=== PATIENT | male | born 1965 | race Caucasian/White ===

== ENCOUNTER 2023-10-12 21:12 | Inpatient (IN) | payer MEDICAID, OTHER ==
[~2023-10-12] VITALS: Ht 167.6 cm; Wt 71.8 kg
[2023-10-12 22:27] LABS: BASOPHILS % 0.5 % (0.0-2.0); EOSINOPHILS % 2.1 % (0.0-5.0); HEMATOCRIT. 34.1 % (42.0-52.0); LYMPHOCYTES % 19.2 % (20.0-50.0); MEAN CORPUSCULAR HEMOGLOBIN 29.2 pg (28.0-32.0); MEAN CORPUSCULAR HGB CONC 32.1 g/dL (31.0-37.0); MEAN CORPUSCULAR VOLUME 90.9 fL (80.0-94.0); MONOCYTES % 8.8 % (2.0-8.0); NEUTROPHILS % 69.4 % (40.0-76.0); PLATELET 145 x1000/uL (130-400); RED BLOOD CELL COUNT 3.76 mill/uL (4.7-6.1); RED CELL DISTRIBUTION WIDTH 15.9 % (11.6-14.6); WHITE BLOOD COUNT 6.8 x1000/uL (4.5-11.0)
[2023-10-12 22:36] LABS: CHLORIDE 111 mEq/L (98-107); POTASSIUM 4.7 mEq/L (3.5-5.1); SODIUM 139 mEq/L (136-145)
[2023-10-12 22:37] LABS: CALCIUM 8.4 mg/dL (8.7-10.4); CARBON DIOXIDE 21 mEq/L (21-32)
[2023-10-12 22:41] LABS: CREATININE 2.6 mg/dL (0.6-1.3)
[2023-10-12 22:42] LABS: GLUCOSE 56 mg/dL (70-105); UREA NITROGEN BLOOD 33 mg/dL (9-23)
[2023-10-12 22:44] LABS: ALANINE AMINOTRANSFERASE 15 IU/L (10-49); ALBUMIN 3.2 g/dL (3.2-4.8); ASPARTATE AMINOTRANSFERASE 27 IU/L (<34); BILIRUBIN TOTAL 0.2 mg/dL (0.1-1.0); PROTEIN TOTAL 6.4 g/dL (6.0-8.3)
[2023-10-12 22:58] LABS: TROPONIN I HIGH SENSITIVITY 446 ng/L (3.0-53)
[2023-10-12 22:59] LABS: TROPONIN I HIGH SENSITIVITY 437 ng/L (3.0-53)
[2023-10-13] MEDS: FUROSEMIDE 40MG/4ML VIAL IVP ONE (00:55)
[2023-10-13 03:18] LABS: CLARITY URINE CLEAR (CLEAR); COLOR URINE YELLOW (YELLOW); GLUCOSE URINE NEGATIVE (NEGATIVE); KETONES URINE NEGATIVE (NEGATIVE); LEUKOCYTE ESTERASE URINE NEGATIVE (NEGATIVE); NITRITE URINE NEGATIVE (NEGATIVE); OCCULT BLOOD URINE NEGATIVE (NEGATIVE); PH URINE 5.5 (4.5-8.0); PROTEIN URINE 2+ (NEGATIVE); UROBILINOGEN URINE 0.2 E.U./dL (0.2-1.0)
[2023-10-13 04:01] LABS: BACTERIA URINE TRACE; RBC URINE 0-2 /hpf (0-2); SQUAMOUS EPITHELIAL CELL URINE FEW /lpf (RARE/1+); WBC URINE NONE SEEN /hpf (0-2)
[2023-10-13 08:58] VITALS: BP 188/116; PULSE 96; RESP 21; TEMP 97.7
[2023-10-13 09:57] VITALS: BP 188/116; PULSE 96; RESP 20; TEMP 97.7
[2023-10-13 11:09] LABS: *AMPHETAMINES SCREEN URINE NEGATIVE (NEGATIVE); *BARBITURATES SCREEN URINE NEGATIVE (NEGATIVE); *BENZODIAZEPINES SCREEN URINE NEGATIVE (NEGATIVE); *COCAINE SCREEN URINE NEGATIVE (NEGATIVE); METHADONE URINE SCREEN NEGATIVE (NEGATIVE); OPIATES URINE SCREEN NEGATIVE (NEGATIVE)
[2023-10-13 11:10] LABS: CANNABINOID URINE SCREEN NEGATIVE (NEGATIVE); ECSTASY MDMA SCREEN URINE NEGATIVE (NEGATIVE); PHENCYCLIDINE URINE SCREEN NEGATIVE (NEGATIVE)
[2023-10-13 12:00] VITALS: BP 159/94; PULSE 99; RESP 18; TEMP 97.9
[2023-10-13 13:17] LABS: CREATINE KINASE 169 IU/L (46-171)
[2023-10-13] MEDS: AMLODIPINE 5MG TABLET PO NR (14:14)
[2023-10-13] MEDS: ASPIRIN 81MG EC TABLET PO SCH (14:14)
[2023-10-13] MEDS: HYDRALAZINE HCL 50MG TABLET PO SCH (14:15)
[2023-10-13 16:00] VITALS: BP 176/100; PULSE 101; RESP 22; TEMP 98
[2023-10-13] MEDS: CLONIDINE 0.1MG TABLET PO PRN (17:46)
[2023-10-13] MEDS ORDERED: IPRATROPIUM/ALBUTEROL 0.5-3(2.5)MG/3ML NEB NEB PRN (19:45)
[2023-10-13] MEDS ORDERED: CLONIDINE 0.1MG TABLET PO PRN (19:45)
[2023-10-13] MEDS ORDERED: ZOLPIDEM TARTRATE 5MG TABLET PO PRN (19:45)
[2023-10-13] MEDS ORDERED: DOCUSATE SODIUM 100MG CAPSULE PO PRN (19:45)
[2023-10-13] MEDS ORDERED: ONDANSETRON HCL 4MG/2ML INJ IV PRN (19:45)
[2023-10-13] MEDS ORDERED: ACETAMINOPHEN 325MG TABLET PO PRN (19:45)
[2023-10-13 20:00] VITALS: BP 146/75; PULSE 80; RESP 16; TEMP 98.2
[2023-10-13] MEDS: FUROSEMIDE 40MG/4ML VIAL IVP SCH (21:12)
[2023-10-13] MEDS: ATORVASTATIN CALCIUM 10MG TABLET PO SCH (21:12)
[2023-10-13] MEDS: AMLODIPINE 5MG TABLET PO SCH (21:13)
[2023-10-13] MEDS: INSULIN LISPRO 100 UNITS/ML SUBCUT SCH (21:30)
[2023-10-13] MEDS ORDERED: DEXTROSE 50% WATER 50ML SYRINGE IV PRN (21:30)
[2023-10-13] MEDS: BLOOD SUGAR DIAGNOSTIC STRIP TEST SCH (21:30)
[2023-10-14] VITALS: BP 130/75; PULSE 68; RESP 16; TEMP 98.4
[2023-10-14 04:00] VITALS: BP 161/84; PULSE 85; RESP 21; TEMP 98.5
[2023-10-14 07:24] LABS: POTASSIUM 4.5 mEq/L (3.5-5.1)
[2023-10-14 07:25] LABS: CALCIUM 8.2 mg/dL (8.7-10.4)
[2023-10-14 07:30] LABS: CREATINE KINASE MB FRACTION 2.4 ng/mL (0.5-3.6); CREATININE 2.3 mg/dL (0.6-1.3)
[2023-10-14 07:35] LABS: BASOPHILS % 0.8 % (0.0-2.0); HEMATOCRIT. 34.5 % (42.0-52.0); LYMPHOCYTES % 21.9 % (20.0-50.0); MEAN CORPUSCULAR HEMOGLOBIN 28.8 pg (28.0-32.0); MEAN CORPUSCULAR HGB CONC 31.8 g/dL (31.0-37.0); MEAN CORPUSCULAR VOLUME 90.7 fL (80.0-94.0); MONOCYTES % 7.5 % (2.0-8.0); NEUTROPHILS % 66.8 % (40.0-76.0); PLATELET 146 x1000/uL (130-400); RED CELL DISTRIBUTION WIDTH 15.7 % (11.6-14.6); WHITE BLOOD COUNT 5.3 x1000/uL (4.5-11.0)
[2023-10-14 07:48] LABS: HEPATITIS B SURFACE ANTIGEN NEGATIVE (Negative)
[2023-10-14 08:00] VITALS: BP 153/88; PULSE 81; RESP 19; TEMP 98.7
[2023-10-14 08:09] LABS: HEPATITIS C AB NON REACTIVE (Neg) (Negative)
[2023-10-14] MEDS ORDERED: FUROSEMIDE 40MG/4ML VIAL IVP SCH (09:00)
[2023-10-14 12:00] VITALS: BP 150/90; PULSE 86; RESP 19; TEMP 98.6
[2023-10-14] MEDS: HYDRALAZINE HCL 50MG TABLET PO SCH (13:42)
[2023-10-14] MEDS: CARVEDILOL 3.125 MG TABLET PO NR (13:45)
[2023-10-14 16:00] VITALS: BP 141/91; PULSE 78; RESP 14; TEMP 98.3
[2023-10-14 20:00] VITALS: BP 142/84; PULSE 88; RESP 20; TEMP 98.5
[2023-10-14] MEDS: CARVEDILOL 3.125 MG TABLET PO SCH (21:14)
[2023-10-15] VITALS: BP 130/74; PULSE 72; RESP 16; TEMP 98.6
[2023-10-15 04:00] VITALS: BP 142/72; PULSE 83; RESP 17; TEMP 98.6
[2023-10-15 07:00] LABS: CALCIUM 8.1 mg/dL (8.7-10.4); POTASSIUM 4.6 mEq/L (3.5-5.1)
[2023-10-15 07:05] LABS: BASOPHILS % 0.7 % (0.0-2.0); EOSINOPHILS % 2.8 % (0.0-5.0); HEMATOCRIT. 34.9 % (42.0-52.0); HEMOGLOBIN. 11.3 g/dL (14.0-18.0); LYMPHOCYTES % 21.1 % (20.0-50.0); MEAN CORPUSCULAR HEMOGLOBIN 29.4 pg (28.0-32.0); MEAN CORPUSCULAR HGB CONC 32.4 g/dL (31.0-37.0); MEAN CORPUSCULAR VOLUME 90.6 fL (80.0-94.0); MEAN PLATELET VOLUME 9.1 fl (7.4-10.4); MONOCYTES % 8.1 % (2.0-8.0); NEUTROPHILS % 67.3 % (40.0-76.0); PLATELET 155 x1000/uL (130-400); RED BLOOD CELL COUNT 3.85 mill/uL (4.7-6.1); RED CELL DISTRIBUTION WIDTH 15.6 % (11.6-14.6); WHITE BLOOD COUNT 5.7 x1000/uL (4.5-11.0)
[2023-10-15 07:06] LABS: CREATININE 2.5 mg/dL (0.6-1.3)
[2023-10-15 08:00] VITALS: BP 147/83; PULSE 78; RESP 15; TEMP 98.7
[2023-10-15] MEDS: CARVEDILOL 3.125 MG TABLET PO SCH (08:57)
[2023-10-15 09:09] LABS: COMPLEMENT C3 119 mg/dL (82-167); COMPLEMENT C4 24 mg/dL (12-38)
[2023-10-15] MEDS: CHLORHEXIDINE GLUCONATE 4% EXTERNAL USE TOP SCH (09:34)
[2023-10-15 10:10] LABS: ANTI-NUCLEAR ANTIBODIES DIRECT Negative (Negative)
[2023-10-15 12:00] VITALS: BP 131/81; PULSE 68; RESP 15; TEMP 98.3
[2023-10-15] MEDS ORDERED: ASPI-1406 PO (12:32)
[2023-10-15] MEDS ORDERED: AMLO5TAB88 PO (12:32)
[2023-10-15] MEDS ORDERED: FURO-151 MT (12:32)
[2023-10-15] MEDS ORDERED: HYDR50TA39 PO (12:32)
[2023-10-15] MEDS ORDERED: ATOR10TA PO (12:32)
[2023-10-15 14:46] VITALS: BP 131/81; PULSE 68; TEMP 98; O2SAT 95
== END 2023-10-15 17:41 | disposition home health service (06) | DRG 194 ==
LOC: ER 21:12 → EDBD 21:12 → 3WST 10-13 01:17 → EDBEDREQDT 10-13 01:34 → EDBEDREQ 10-13 01:34 → EDBEDREQTM 10-13 01:34
PROVIDERS: ADMIT Internal Medicine; ATTEND Internal Medicine
DX: I13.0 Hypertensive heart and chronic kidney disease with heart failure and stage 1 through stage 4 chronic kidney disease, or unspecified chronic kidney disease (principal); I21.4 Non-ST elevation (NSTEMI) myocardial infarction; I31.39 Other pericardial effusion (noninflammatory); N17.9 Acute kidney failure, unspecified; I50.21 Acute systolic (congestive) heart failure; I16.0 Hypertensive urgency; N18.9 Chronic kidney disease, unspecified; N43.2 Other hydrocele; N44.8 Other noninflammatory disorders of the testis; E11.22 Type 2 diabetes mellitus with diabetic chronic kidney disease; E11.40 Type 2 diabetes mellitus with diabetic neuropathy, unspecified; E11.51 Type 2 diabetes mellitus with diabetic peripheral angiopathy without gangrene; L98.492 Non-pressure chronic ulcer of skin of other sites with fat layer exposed; Z79.4 Long term (current) use of insulin; Z79.82 Long term (current) use of aspirin; Z79.899 Other long term (current) drug therapy; Z89.422 Acquired absence of other left toe(s)
CPT/HCPCS: 36415; 71045; 76770; 76870; 80048; 80053; 80305; 81003; 82550; 82553; 82962; 83036; 83880; 84484; 85025; 86038; 86160; 86705; 87340; 93005; 93306; 93970; 93976; 99291; J1815; J1940